=== PATIENT | male | born 1935 | race Caucasian/White ===

== ENCOUNTER 2018-07-14 16:05 | Emergency (ER) | payer MEDICARE, OTHER ==
[2018-07-14 16:22] VITALS: RESP 18
[2018-07-14] MEDS ORDERED: SODIUM CHLORIDE 0.9% 1,000 ML IV ONE (17:27)
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
[2018-07-14 18:17] LABS: Basophils % (A) 0 %; Eosinophils # (A) 0.1 k/uL (0-0.7); Eosinophils % (A) 2 %; HCT 44.6 % (39.0-53.0); Lymphocytes # (A) 1.4 k/uL (1.0-4.8); Lymphocytes % (A) 22 %; MCH 31.4 pg (25.0-35.0); MCHC 33.6 g/dL (31.0-37.0); MCV 93.4 fL (80.0-100.0); Monocytes # (A) 0.5 k/uL (0-1.0); Monocytes % (A) 9 %; Neutrophils % (A) 65 %; Platelet Count 268 k/uL (150-450); RBC 4.78 m/uL (4.30-5.90); RDW 12.6 % (11.5-15.5); WBC 6.1 k/uL (3.8-10.6)
[2018-07-14 18:31] LABS: ALT 26 U/L (21-72); AST 22 U/L (17-59); Acetaminophen <10.0 ug/mL; Alcohol <10 mg/dL; Alkaline Phosphatase 61 U/L (38-126); Anion Gap 6 mmol/L; Blood Urea Nitrogen 7 mg/dL (9-20); Calcium 9.3 mg/dL (8.4-10.2); Carbon Dioxide 29 mmol/L (22-30); Chloride 106 mmol/L (98-107); Creatine Kinase 65 U/L (55-170); Glucose 96 mg/dL (74-99); Potassium 4.1 mmol/L (3.5-5.1); Salicylate <1.0 mg/dL; Sodium 141 mmol/L (137-145); Total Bilirubin 0.6 mg/dL (0.2-1.3); Total Protein 6.5 g/dL (6.3-8.2)
[2018-07-14 18:32] LABS: Prothrombin Time 9.8 sec (9.0-12.0)
[2018-07-14 18:33] LABS: Partial Thromboplastin Time 26.3 sec (22.0-30.0)
--- NOTE | 2018-07-14 18:40 | CT ---
EXAMINATION TYPE: CT brain wo con DATE OF EXAM: 07/14/2018 COMPARISON: 09/08/2014 HISTORY: Altered mental status. CT DLP: 1105.4 mGycm Automated exposure control for dose reduction was used. FINDINGS: There is cerebral cortical atrophy. There is hypodensity in the periventricular white matter. There i s no mass effect nor midline shift. There is no sign of intracranial hemorrhage. The calvarium is int act. IMPRESSION: CEREBRAL ATROPHY AND CHRONIC SMALL VESSEL ISCHEMIA. NO ACUTE INTRACRANIAL ABNORMALITY. THERE IS PROGR ESSION OF WHITE MATTER DISEASE COMPARED TO OLD EXAM..
--- NOTE | 2018-07-14 18:41 | XR ---
EXAMINATION TYPE: XR chest 2V DATE OF EXAM: 07/14/2018 COMPARISON: EXAMINATION TYPE: XR chest 2V DATE OF EXAM: 07/14/2018 COMPARISON: NONE HISTORY: Altered mental status TECHNIQUE: 2 views FINDINGS: There is no heart failure nor confluent pneumonic infiltrate. Thoracic aorta is atheromatou s. Heart size is normal. There is no pleural effusion. There is spurring in the thoracic spine. IMPRESSION: No active cardiopulmonary disease.
[2018-07-14 18:44] LABS: Creatine Kinase MB 1.5 ng/mL (0.0-2.4); Troponin I <0.012 ng/mL (0.000-0.034)
[2018-07-14 19:05] LABS: Appearance,Urine Clear (Clear); Bilirubin,Urine Negative (Negative); Blood,Urine Negative (Negative); Color,Urine Colorless; Glucose,Urine (UA) Negative (Negative); Ketones,Urine Negative (Negative); Leukocyte Esterase,Urine Negative (Negative); Nitrite,Urine Negative (Negative); Protein,Urine Negative (Negative); Specific Gravity,Urine 1.003 (1.001-1.035); Urobilinogen,Urine <2.0 mg/dL (<2.0)
[2018-07-14 19:17] LABS: Amphetamine Screen,Urine Not Detected (NotDetected); Barbiturate Screen,Urine Not Detected (NotDetected); Benzodiazepines Screen,Urine Detected (NotDetected); Cocaine Screen,Urine Not Detected (NotDetected); Methadone Screen, Urine Not Detected (NotDetected); Opiate Screen,Urine Not Detected (NotDetected); Oxycodone Screen, Urine Not Detected (NotDetected); Phencyclidine Screen,Urine Not Detected (NotDetected); Tricyclic Antidepressant,Urine Not Detected (NotDetected); Urn Cannabinoid Scrn Not Detected (NotDetected)
[2018-07-14] MEDS ORDERED: ALPRAZolam 0.25 MG TAB PO STA (19:59)
[2018-07-14] MEDS ORDERED: LORazepam 2 MG/ML INJ IV STA (23:28)
[2018-07-15] MEDS ORDERED: LORazepam 2 MG/ML INJ IV STA (00:41)
[2018-07-15 01:49] VITALS: BP 128/69; PULSE 55; TEMP 96.8
[2018-07-15] MEDS ORDERED: HALOPERIDOL LACTATE 5 MG/ML 1 ML VIAL IM STA (02:29)
== END 2018-07-15 02:40 ==
LOC: EC 16:05
DX: F23 Brief psychotic disorder (principal); F03.91 Unspecified dementia, unspecified severity, with behavioral disturbance; I44.4 Left anterior fascicular block; R00.1 Bradycardia, unspecified; R41.82 Altered mental status, unspecified; R35.0 Frequency of micturition; R45.1 Restlessness and agitation; R29.6 Repeated falls; Z87.891 Personal history of nicotine dependence; Z79.899 Other long term (current) drug therapy; W22.8XXA Striking against or struck by other objects, initial encounter
CPT/HCPCS: 36415; 93005; 80164; 80053; 82140; 82550; 82553; 84484; 85025; 85610; 85730; 81003; 80306; 83520 ×2; 80320; 71046; 70450; 99285; 96374; 96376; 96372; 96361 ×5; J2060